=== PATIENT | male | born 1995 | race Two or more races ===

== ENCOUNTER 2017-06-04 15:46 | Emergency (ER) | payer BC ==
[~2017-06-04] VITALS: Ht 182.9 cm; Wt 80.0 kg
[2017-06-04] MEDS ORDERED: ONDANSETRON 4MG ODT PO ONE (17:45)
[2017-06-04] MEDS ORDERED: HYDROCODONE/ACETAMINOPHEN 10/325MG TABLET PO ONE (17:45)
[2017-06-04] MEDS ORDERED: TETANUS, DIPHTHERIA, PERTUSSIS VAC/PF 0.5ML (>7YR OLD) IM ONE (17:45)
[2017-06-04] MEDS ORDERED: SODIUM CHLORIDE 0.9% 1,000 ML IV ONE (20:45)
[2017-06-04] MEDS ORDERED: MORPHINE SULFATE 2 MG/ML CPJ (NOT FOR IM USE) IV SCH (21:31)
[2017-06-04] MEDS ORDERED: KETOROLAC 30MG/ML VIAL IV SCH (21:31)
[2017-06-04] MEDS ORDERED: ONDANSETRON HCL 4MG/2ML VIAL IV SCH (21:32)
[2017-06-04] MEDS ORDERED: BACITRACIN ZINC OINT UDPKT TOP SCH (21:32)
[2017-06-04 22:13] VITALS: BP 121/67
== END 2017-06-04 23:57 | disposition short-term general hospital (02) ==
LOC: ER 16:11
DX: S02.81XA Fracture of other specified skull and facial bones, right side, initial encounter for closed fracture (principal); S52.571A Other intraarticular fracture of lower end of right radius, initial encounter for closed fracture; W11.XXXA Fall on and from ladder, initial encounter; Y93.89 Activity, other specified; Y92.89 Other specified places as the place of occurrence of the external cause; Y99.8 Other external cause status
CPT/HCPCS: 70450; 70486; 71250; 73110; 74176; 90471; 90715; 96374; 96375; 99285; J1885; J2270; J2405; J7030; Q0162; X7700; Z7610